=== PATIENT | female | born 1950 | race Hispanic/Latino ===

== ENCOUNTER → 2025-03-21 | Outpatient (CLI) | payer OTHER ==
[2025-03-21] MEDS: REGADENOSON 0.4 MG/5 ML PF SYG IVP ONE (12:49)
--- NOTE | 2025-03-21 17:44 | HMCSR ---
APPROVED REPORT Height: 5 ft 1in Weight: 138 lbs TEST INDICATIONS CAD The imaging protocol used to acquire images was Rest Tc-99m/stress Tc-99m 1 day Consent: The procedure was explained and understood by the patient. Informerd consent was witnessed Dejon Cannon RN First, low dose rest was performed then high dose stress. RESTING DATA: The resting ekg shows: NSR Rest SPECT myocardial perfusion imaging was performed in supine position minutes following the intra venous injection of 11 mCi of Tc-99 Sestamibi. Time of rest injection: Date: 03/21/2025 Time of rest imaging: Date: 03/21/2025 PHARMACOLOGIC STRESS: Pharmacologic stress test was performed by injecting regadenoson 0.4 mg IV push followed by the intra venous injection of 29 mCi of Tc-99 Sestamibi. Time of stress injection: Date: 03/21/2025 Time of stress imaging: Date: 03/21/2025 Heart Rate at time of stress injection: 58 bpm. The images were gated to evaluate regional wall motion and calculate left ventricular ejection fracti on. STRESS DETAILS Reason for Termination: Infusion complete Stress Symptoms: Chest Pain Max HR Achieved: 95 bpm % of APMHR Achieved: 76 Max Blood Pressure: 167/72 mmHg Stress ECG: NSR LEFT VENTRICLE Size: The left ventricular size is normal. Systolic Function:The left ventricular systolic function is normal. Wall Motion: No regional wall motion abnormalities noted. The left ventricular ejection fraction was calculated to be 78%.TID = . LV PERFUSION Fixed gabe-apical defect. Conclusion The left ventricular size is normal. The left ventricular systolic function is normal. No regional wall motion abnormalities noted. Fixed gabe-apical defect. The left ventricular ejection fraction was calculated to be 78%.
== END | disposition home or self-care (01) ==
LOC: RAH 10:21
PROVIDERS: ATTEND Internal Medicine Cardiovascular Disease
DX: I25.10 Atherosclerotic heart disease of native coronary artery without angina pectoris (principal)
CPT/HCPCS: 78452; 93017; J2785; A9500 ×2